=== PATIENT | female | born 1960 | race African-American/Black ===

== ENCOUNTER 2016-07-15 19:06 | Emergency (ER) | payer MEDICAID, OTHER ==
[~2016-07-15 19:06] MED LIST: ASPI325T PO; ATOR20TA42 PO; HALO100P IM; HALO5 PO; METF500 PO; PANT20 PO
[2016-07-15 19:07] VITALS: BP 151/72; PULSE 90; RESP 16; TEMP 98.3; O2SAT 96
[2016-07-15 20:16] LABS: BACTERIA, URINE RARE /hpf; BLOOD, URINE NEG (NEG); COMMENT (UR) CULT NOT INDICATED; CULTURE IF INDICATED CULT NOT INDICATED; GLUCOSE,URINE NEG (NEG); KETONE, URINE NEG (NEG); NITRITE,URINE NEG (NEG); PH, URINE 5.5 (5.0-8.5); SQUAMOUS EPITHELIAL CELL URINE 5 /hpf (0-5); URINE COLOR LIGHT-YELLOW (YELLW/STRAW)
== END 2016-07-15 20:35 | disposition left against medical advice (07) ==
LOC: NED 19:06
DX: R68.89 Other general symptoms and signs (principal)
CPT/HCPCS: 81001; 99281

== ENCOUNTER 2016-07-18 09:43 | Emergency (ER) | payer OTHER ==
[~2016-07-18] VITALS: Ht 175.3 cm; Wt 84.0 kg
[2016-07-18 09:45] VITALS: BP 124/70; PULSE 81; RESP 16; TEMP 98.5; O2SAT 95
[2016-07-18] MEDS ORDERED: CYCL5TAB PO (10:04)
[2016-07-18] MEDS ORDERED: ACET-703 PO (10:04)
[2016-07-18] MEDS ORDERED: ROBA750T PO (10:10)
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
== END 2016-07-18 11:05 | disposition home or self-care (01) ==
LOC: NEPB 09:43
DX: M62.830 Muscle spasm of back (principal); G89.29 Other chronic pain; F17.200 Nicotine dependence, unspecified, uncomplicated; Z86.59 Personal history of other mental and behavioral disorders
CPT/HCPCS: 99283

== ENCOUNTER 2016-08-02 12:37 | Emergency (ER) | payer MEDICAID, OTHER ==
[~2016-08-02] VITALS: Ht 175.3 cm; Wt 90.0 kg
[~2016-08-02 12:37] MED LIST changes: +ACET-703 PO; -ASPI325T PO; -ATOR20TA42 PO; +CYCL5TAB PO; -HALO100P IM; -HALO5 PO; -METF500 PO; -PANT20 PO; +ROBA750T PO
[2016-08-02 12:39] VITALS: BP 157/89; PULSE 79; RESP 18; TEMP 97.9; O2SAT 96
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
[2016-08-02] MEDS ORDERED: ORPH100T99 PO (14:14)
[2016-08-02] MEDS ORDERED: PRED10PA2 PO (14:14)
[2016-08-02 14:36] VITALS: BP 124/77; TEMP 98
== END 2016-08-02 14:36 | disposition home or self-care (01) ==
LOC: NEPB 12:37
DX: M62.830 Muscle spasm of back (principal); M79.7 Fibromyalgia; M25.50 Pain in unspecified joint
CPT/HCPCS: 99283

== ENCOUNTER 2016-08-08 20:55 | Emergency (ER) | payer MEDICAID ==
[~2016-08-08] VITALS: Ht 175.3 cm; Wt 86.0 kg
[~2016-08-08 20:55] MED LIST changes: -CYCL5TAB PO; +ORPH100T99 PO; +PRED10PA2 PO
[2016-08-08 20:58] VITALS: BP 140/78; PULSE 88; RESP 16; TEMP 98.2; O2SAT 99
[2016-08-09 01:24] VITALS: BP 129/82; PULSE 86; RESP 18; O2SAT 100
[2016-08-09] MEDS ORDERED: KETOROLAC TROMETHAMINE 60 MG/2 ML (IM) VIAL IM ONE (01:45)
[2016-08-09] MEDS ORDERED: guaiFENesin/CODEINE SYRUP 200 MG/20 MG/10 ML CUP PO ONE (01:45)
--- NOTE | 2016-08-09 01:55 | PD ---
HPI Chief Complaint: Cold / Flu Symptoms Time Seen by Provider: 01:23 Travel History International Travel<30 days: No Contact w/Intl Traveler<30days: No Traveled to known affect area: No History of Present Illness HPI 56yo F with PMH of fibromyalgia, chronic muscle spasm presents to the ED with c/ o cough, nasal congestion, throat irritation and bilateral rib pain when she coughs for 5 days. Pt denies any chest pain, sob, n/v, abdominal pain, focal weakness or numbness. Pt took AC powder for pain. States she was here in the emergency department for muscle spasm before that and thinks she may have caught something. PFSH Past Medical History Anxiety: Yes Cancer: No Cardiovascular Problems: No Diabetes: No Diminished Hearing: No Headaches: No Musculoskeletal: Yes (SCOLIOSIS, FIBRIOMYALGIA, CHRONIC PAIN) Schizophrenia: Yes Seizures: No ?: Not Tubal Ligation: Yes (1986) Past Surgical History Gynecologic Surgery: Yes (LAPARASCOPY FOR ENDOMETRIOSIS) Social History Alcohol Use: No Tobacco Use: Yes (OCASSIONALLY CIGARRETTE) Substance Use: No Allergies-Medications (Allergen,Severity, Reaction): Coded Allergies: No Known Allergies (Unverified , 08/09/16) Reported Meds & Prescriptions Reported Meds & Active Scripts Active Robitussin 12 Hour Cough Liq (Dextromethorphan Polistirex Liq) 30 Mg/5 Ml Jade 10 Ml PO Q12H PRN 5 Days Ibuprofen 600 Mg Tab 600 Mg PO Q8HR PRN Flonase Allergy Relief Nasal [place] (Fluticasone Nasal [place]) 50 Mcg/Act [place] 50 Mcg EACH NARE BID Orphenadrine CR (Orphenadrine Citrate) 100 Mg Tab 100 Mg PO Q12HR Prednisone (48) 10 mg tab Dose Pack (Prednisone) 10 Mg Dspk 10 Mg PO DIRECTED Robaxin (Methocarbamol) 750 Mg Tab 750 Mg PO QID PRN 2 tabs QID for 2 days, then 1 tab QID thereafter Reported Tylenol Extra Strength (Acetaminophen) 500 Mg Tab 500 Mg PO Q4-6H PRN Review of Systems Except as stated in HPI: all other systems reviewed are Neg Physical Exam Narrative GENERAL: 56yo F not in distress. SKIN: Warm and dry. HEAD: Atraumatic. Normocephalic. EYES: Pupils equal and round. No scleral icterus. No injection or drainage. ENT: Throat: Clear. Nose: +Nasal turbinate edema. TM wnl bilaterally. NECK: Trachea midline. No JVD. CARDIOVASCULAR: Regular rate and rhythm. No murmur appreciated. RESPIRATORY: No accessory muscle use. Clear to auscultation. Breath sounds equal bilaterally. GASTROINTESTINAL: Abdomen soft, non-tender, nondistended. No rebound tenderness or guarding. MUSCULOSKELETAL: No obvious deformities. No clubbing. No cyanosis. No edema. NEUROLOGICAL: Awake and alert. No obvious cranial nerve deficits. Motor grossly within normal limits. Normal speech. PSYCHIATRIC: Appropriate mood and affect; insight and judgment normal. Data Data Last Documented VS Vital Signs Date Time Temp Pulse Resp B/P Pulse Ox O2 Delivery O2 Flow Rate FiO2 08/09/16 01:24 86 18 129/82 100 Room Air 08/08/16 20:58 98.2 Orders Ketorolac Inj (Toradol Inj) (08/09/16 01:45) Guaifen-Cod 200-20 Mg/10ml Liq (Robituss (08/09/16 01:45) Chest, Single Ap (08/09/16 ) [facility] Medical Decision Making Medical Screen Exam Complete: Yes Emergency Medical Condition: Yes Interpretation(s) Last Impressions Chest X-Ray 08/09/16 0000 Signed Impressions: Service Date/Time: Tuesday, August 09, 2016 01:35 - CONCLUSION: 1. No acute cardiopulmonary disease. Humberto Umaña MD Differential Diagnosis URI vs. musculoskeletal pain vs. pneumonia Narrative Course 56yo F with URI symptoms and musculoskeletal rib pain when coughing. No chest pain or sob. Will give robitussin and toradol. CXR showed no acute cardiopulmonary disease. Pain improved. Return precautions given. VS stable. Diagnosis Primary Impression: URI (upper respiratory infection) Qualified Code: J06.9 - Upper respiratory tract infection, unspecified type Patient Instructions: General Instructions Departure Forms: Tests/Procedures Additional Instructions: Please follow up with your PMD in 3-7 days. Return to the ED if symptoms worsen. Med/Other Pt SpecificInfo: Prescription(s) given Scripts Acetaminophen (Acetaminophen Extra Strength)500 Mg [id number] Mg PO Q6H PRN (PAIN SCALE 1 TO 4) #20 TAB Ref 0 Prov:Casi Mendez DO 2/17/17 Dextromethorphan Polistirex Liq (Robitussin 12 Hour Cough Liq)30 Mg/5 Ml Sus10 Ml PO Q12H PRN (COUGH) 5 Days Ref 0 Prov:Casi Mendez DO 08/09/16 Ibuprofen 600 Mg [id number] Mg PO Q8HR PRN (PAIN) #20 TAB Ref 0 Prov:Casi Mendez DO 08/09/16 Fluticasone Nasal [place] (Flonase Allergy Relief Nasal [place])50 Mcg/Act Spray50 Mcg EACH NARE BID #1 BOTTLE Ref 0 Prov:Casi Mendez DO 08/09/16 Disposition: 01 DISCHARGE HOME Condition: Stable Casi Mendez DO Aug 09, 2016 01:55
--- NOTE | 2016-08-09 02:47 | RADRPT ---
EXAM DATE/TIME: 08/09/2016 01:35 [facility] COMPARISON: No previous studies available for comparison. INDICATIONS : Patient complains of cough, congestion, and bilateral flank pain. MEDICAL HISTORY : None. SURGICAL HISTORY : None. ENCOUNTER: Initial ACUITY: 3 days PAIN SCORE: 6/10 LOCATION: chest FINDINGS: A single view of the chest demonstrates the lungs to be symmetrically aerated without evidence of mas s, infiltrate or effusion. The cardiomediastinal contours are unremarkable. Osseous structures are intact. CONCLUSION: 1. No acute cardiopulmonary disease. Humberto Umaña MD on August 09, 2016 at 2:30 Board Certified Radiologist. This report was verified electronically.
[2016-08-09] MEDS ORDERED: IBUP-232 PO (03:06)
[2016-08-09] MEDS ORDERED: FLUT1SPR5 EACH NARE (03:06)
[2016-08-09] MEDS ORDERED: DEXT1SUS PO (03:06)
[2016-08-09] MEDS ORDERED: ACET500T36 PO (03:21)
== END 2016-08-09 03:27 | disposition home or self-care (01) ==
LOC: NEPC 20:55
DX: J06.9 Acute upper respiratory infection, unspecified (principal); M79.7 Fibromyalgia
CPT/HCPCS: 71010; 96372; 99283; J1885

== ENCOUNTER 2016-09-08 14:11 | Emergency (ER) | payer MEDICAID ==
[~2016-09-08] VITALS: Ht 175.3 cm; Wt 86.0 kg
[~2016-09-08 14:11] MED LIST changes: +ACET500T36 PO; +DEXT1SUS PO; +FLUT1SPR5 EACH NARE; +IBUP-232 PO
[2016-09-08 14:12] VITALS: BP 144/95; PULSE 91; RESP 18; TEMP 98.3; O2SAT 100
--- NOTE | 2016-09-08 14:53 | PD ---
HPI Chief Complaint: Abdominal Pain Time Seen by Provider: 14:39 Travel History International Travel<30 days: No Contact w/Intl Traveler<30days: No Traveled to known affect area: No History of Present Illness HPI 56 y/o female presents with left-sided abdominal pain that goes into her vagina. She states that it's been over the past couple days or so. She states she feels like there is something moving and it got acutely worse today. She denies other concurrent complaints but is difficult to get an exact history from as she will state one moment that is been going on for a couple days and then she'll states that it's been going on and she has been here before but they wouldn't really check it out. Quality is pressure. Severity is moderate. PFSH Past Medical History Anxiety: Yes Cancer: No Cardiovascular Problems: No Diabetes: No Diminished Hearing: No Headaches: No Musculoskeletal: Yes (SCOLIOSIS, FIBRIOMYALGIA, CHRONIC PAIN) Schizophrenia: Yes Seizures: No Tubal Ligation: Yes (1986) Past Surgical History Gynecologic Surgery: Yes (LAPARASCOPY FOR ENDOMETRIOSIS) Social History Alcohol Use: No Tobacco Use: Yes (OCASSIONALLY CIGARRETTE) Substance Use: No Allergies-Medications (Allergen,Severity, Reaction): Coded Allergies: Ibuprofen (Verified Adverse Reaction, Mild, abdominal pain, 09/08/16) Reported Meds & Prescriptions Reported Meds & Active Scripts Active Flonase Nasal [place] (Fluticasone Nasal [place]) 50 Mcg/Act [place] 50 Mcg EACH NARE BID Reported Tizanidine (Tizanidine HCl) 4 Mg Tab 4 Mg PO DAILY PRN Review of Systems Except as stated in HPI: all other systems reviewed are Neg Physical Exam Narrative GENERAL: Well-nourished, well-developed patient. SKIN: Warm and dry. HEAD: Normocephalic and atraumatic. EYES: No injection or drainage. ENT: No nasal drainage noted. NECK: Supple, trachea midline. CARDIOVASCULAR: Regular rate and rhythm RESPIRATORY: No increased effort. No accessory muscle use. GASTROINTESTINAL: Abdomen soft, mild tenderness diffusely, nondistended. NEUROLOGICAL: Awake and alert. Motor and sensory grossly within normal limits. Normal speech. Data Data Last Documented VS Vital Signs Date Time Temp Pulse Resp B/P Pulse Ox O2 Delivery O2 Flow Rate FiO2 09/08/16 16:38 95 Room Air 09/08/16 14:12 98.3 91 18 144/95 Orders Complete Blood Count With Diff (09/08/16 14:44) Comprehensive Metabolic Panel (09/08/16 14:44) Urinalysis - C+S If Indicated (09/08/16 14:44) Lipase (09/08/16 14:44) Ct Abd/Pel W Iv Contrast(Rout) (09/08/16 ) Iv Access Insert/Monitor (09/08/16 14:44) Oximetry (09/08/16 14:44) Iohexol 350 Inj (Omnipaque 350 Inj) (09/08/16 17:13) Labs Laboratory Tests Test 09/08/16 15:30 White Blood Count 7.4 TH/MM3 Red Blood Count 4.30 MIL/MM3 Hemoglobin 13.7 GM/DL Hematocrit 39.0 % Mean Corpuscular Volume 90.6 FL Mean Corpuscular Hemoglobin 31.7 PG Mean Corpuscular Hemoglobin 35.0 % Concent Red Cell Distribution Width 13.5 % Platelet Count 287 TH/MM3 Mean Platelet Volume 8.4 FL Neutrophils (%) (Auto) 39.7 % Lymphocytes (%) (Auto) 47.9 % Monocytes (%) (Auto) 7.7 % Eosinophils (%) (Auto) 2.9 % Basophils (%) (Auto) 1.8 % Neutrophils # (Auto) 3.0 TH/MM3 Lymphocytes # (Auto) 3.6 TH/MM3 Monocytes # (Auto) 0.6 TH/MM3 Eosinophils # (Auto) 0.2 TH/MM3 Basophils # (Auto) 0.1 TH/MM3 CBC Comment DIFF FINAL Differential Total Cells 100 Counted Neutrophils % (Manual) 41 % Band Neutrophils % 3 % Lymphocytes % 45 % Monocytes % 5 % Eosinophils % 2 % Basophils % 1 % Neutrophils # (Manual) 3.5 TH/MM3 Metamyelocytes 1 % Myelocytes 1 % Promyelocytes 1 % Differential Comment FINAL DIFF MANUAL Toxic Vacuolation PRESENT Platelet Estimate NORMAL Platelet Morphology Comment NORMAL Urine Color LIGHT-YELLOW Urine Turbidity CLEAR Urine pH 5.0 Urine Specific [place] 1.004 Urine Protein NEG mg/dL Urine Glucose (UA) NEG mg/dL Urine Ketones NEG mg/dL Urine Occult Blood NEG Urine Nitrite NEG Urine Bilirubin NEG Urine Urobilinogen LESS THAN 2.0 MG/DL Urine Leukocyte Esterase NEG Microscopic Urinalysis Comment CULT NOT INDICATED Sodium Level 140 MEQ/L Potassium Level 4.0 MEQ/L Chloride Level 104 MEQ/L Carbon Dioxide Level 25.3 MEQ/L Anion Gap 11 MEQ/L Blood Urea Nitrogen 9 MG/DL Creatinine 0.93 MG/DL Estimat Glomerular Filtration 75 ML/MIN Rate Random Glucose 106 MG/DL Calcium Level 9.5 MG/DL Total Bilirubin 0.3 MG/DL Aspartate Amino Transf 21 U/L (AST/SGOT) Alanine Aminotransferase 21 U/L (ALT/SGPT) Alkaline Phosphatase 77 U/L Total Protein 7.7 GM/DL Albumin 3.7 GM/DL Lipase 112 U/L [facility] Medical Decision Making Medical Screen Exam Complete: Yes Emergency Medical Condition: Yes Medical Record Reviewed: Yes (past history confirmed) Interpretation(s) CBC & BMP Diagram 09/08/16 15:30 CT abdomen pelvis shows no emergent findings, likely fibroids Differential Diagnosis Stone, cyst, diverticulitis, pancreatitis Narrative Course Will check blood work, urinalysis, CT scan and reevaluate ed workup no acute, Patient denies any new complaints, all questions answered. Patient knows that follow up is incumbent on them and to return to the emergency room immediately if new or worsening symptoms develop. Patient given strict return precautions, vitals reviewed and are normal, agrees to further workup as an outpatient. Diagnosis Primary Impression: Abdominal pain Qualified Code: R10.9 - Abdominal pain, unspecified location Patient Instructions: General Instructions Additional Instructions: return as needed, follow with primary this week, tylenol as needed Med/Other Pt SpecificInfo: No Change to Meds Disposition: 01 DISCHARGE HOME Condition: Stable Peg Campbell MD Sep 08, 2016 14:53 Peg Campbell MD Sep 08, 2016 14:53
[2016-09-08] MEDS ORDERED: TIZA4TAB PO (15:21)
[2016-09-08 15:55] LABS: BLOOD, URINE NEG (NEG); GLUCOSE,URINE NEG (NEG); KETONE, URINE NEG (NEG); NITRITE,URINE NEG (NEG); URINE COLOR LIGHT-YELLOW (YELLW/STRAW)
[2016-09-08 15:58] LABS: COMMENT (UR) CULT NOT INDICATED; CULTURE IF INDICATED CULT NOT INDICATED
[2016-09-08 15:59] LABS: BASOPHIL # 0.1 TH/MM3 (0-0.2); BASOPHIL % 1.8 % (0.0-2.0); EOSINOPHIL # 0.2 TH/MM3 (0-0.4); EOSINOPHIL % 2.9 % (0.0-4.0); HEMO FLAGS DIFF FINAL; LYMPH % 47.9 % (9.0-44.0); LYMPHOCYTE # 3.6 TH/MM3 (1.0-4.8); MEAN CELL VOLUME 90.6 FL (80.0-100.0); MEAN CORPUSCULAR HEMOGLOBIN 31.7 PG (27.0-34.0); MONO % 7.7 % (0.0-8.0); NEUT % 39.7 % (16.0-70.0); PLATELET COUNT 287 TH/MM3 (150-450); RED CELL DISTRIBUTION WIDTH 13.5 % (11.6-17.2); WHITE BLOOD COUNT 7.4 TH/MM3 (4.0-11.0)
[2016-09-08 16:14] LABS: ALT (GPT) 21 U/L (10-53); ANION GAP 11 MEQ/L (5-15); AST (GOT) 21 U/L (15-37); BICARBONATE 25.3 MEQ/L (21.0-32.0); BLOOD UREA NITROGEN 9 MG/DL (7-18); CHLORIDE 104 MEQ/L (98-107); GLOMERULAR FILTRATION RATE 75 ML/MIN (>89); SODIUM (NA) 140 MEQ/L (136-145)
[2016-09-08 16:17] LABS: ALKALINE PHOSPHATASE 77 U/L (45-117); TOTAL BILIRUBIN ADULT 0.3 MG/DL (0.2-1.0)
[2016-09-08 16:38] VITALS: O2SAT 95
[2016-09-08 16:43] LABS: BANDS 3 % (0-6); BASOPHILS 1 % (0-2); EOSINOPHILS 2 % (0-4); METAMYELOCYTES 1 % (0-1); MYELOCYTES 1 % (0-0); NEUTROPHIL # MANUAL DIFF 3.5 TH/MM3 (1.8-7.7); POLYS (SEG NEUTROPHILS) 41 % (16-70); PROMYELOCYTES 1 % (0-0); WBC DIFF SAMPLE 100
[2016-09-08 16:46] LABS: PLATELET ESTIMATE SMEAR NORMAL (NORMAL)
[2016-09-08 16:47] LABS: PLATELET MORPHOLOGY NORMAL (NORMAL); SCAN/DIFF FINAL DIFF MANUAL
[2016-09-08 16:48] LABS: TOXIC VACUOLATION PRESENT (NONE SEEN)
[2016-09-08] MEDS ORDERED: IOHEXOL 350 MG/ML 10 ML VIAL (for RAD DIAG) IV ONE (17:13)
--- NOTE | 2016-09-08 17:30 | RADRPT ---
EXAM DATE/TIME: 09/08/2016 17:07 [place] COMPARISON: No previous studies available for comparison. INDICATIONS : Abdomen pain. IV CONTRAST: 90 cc Omnipaque 350 (iohexol) IV ORAL CONTRAST: No oral contrast ingested. RADIATION DOSE: 13.26 CTDIvol (mGy) MEDICAL HISTORY : Scoliosis. SURGICAL HISTORY : Tubal ligation. ENCOUNTER: Initial ACUITY: 1 day PAIN SCALE: 4/10 LOCATION: Bilateral abdomen. TECHNIQUE: Volumetric scanning of the abdomen and pelvis was performed. Using automated exposure control and ad justment of the mA and/or kV according to patient size, radiation dose was kept as low as reasonably achievable to obtain optimal diagnostic quality images. FINDINGS: LOWER LUNGS: The visualized lower lungs are clear. LIVER: Homogeneous density without lesion. There is no dilation of the biliary tree. No calcified gallston es. There is mild steatosis of the liver. SPLEEN: Normal size without lesion. PANCREAS: Within normal limits. KIDNEYS: Normal in size and shape. There is no mass, stone or hydronephrosis. ADRENAL GLANDS: Within normal limits. VASCULAR: There is no aortic aneurysm. BOWEL/MESENTERY: The stomach, small bowel, and colon demonstrate no acute abnormality. There is no free intraperitone al air or fluid. There is a normal appendix. ABDOMINAL WALL: Within normal limits. RETROPERITONEUM: There is no lymphadenopathy. BLADDER: No wall thickening or mass. REPRODUCTIVE: Uterus is inhomogeneous and lobular with ill-defined enhancing masslike areas consistent with leiomyo ma. INGUINAL: There is no lymphadenopathy or hernia. MUSCULOSKELETAL: Within normal limits for patient age. CONCLUSION: 1. Unremarkable bowel gas pattern with no inflammatory change or obstruction. 2. Inhomogeneous uterus with enhancing masslike areas most characteristic of leiomyoma 3. Mild steatosis. Lalo Rico MD on September 08, 2016 at 17:26 Board Certified Radiologist. This report was verified electronically.
== END 2016-09-08 18:00 | disposition home or self-care (01) ==
LOC: NEPC 14:11
DX: R10.9 Unspecified abdominal pain (principal); Z72.0 Tobacco use
CPT/HCPCS: 74177; 80053; 81001; 83690; 85007; 85025; 85027; 99284; Q9967